=== PATIENT | male | born 1945 | race Asian ===

== ENCOUNTER 2023-10-22 10:39 | Emergency (ER) | payer OTHER, MEDICARE, SELFPAY ==
[2023-10-22 10:40] VITALS: BP 220/100
[2023-10-22 10:58] LABS: % Basophils 0.9 % (0-2); % Eosinophils 2.3 % (0-6); % Immature Granulocytes 0.2 % (0-0.5); % Monocytes 8.6 % (1.7-9.3); Absolute Basophils 0.1 10^3/uL (0-0.2); Absolute Eosinophils 0.2 10^3/uL (0-0.7); Absolute Lymphocytes 2.1 10^3/uL (1.2-3.4); Absolute Monocytes 0.6 10^3/uL (0.1-0.6); Absolute Neutrophils 3.7 10^3/uL (1.4-6.5); Hematocrit 47.9 % (39.0-52.0); Hemoglobin 16.6 g/dL (13.0-18.0); Mean Corp Hgb Conc. 34.7 g/dL (33.0-37.0); Mean Corpuscular Hgb 32.2 pg (27.0-31.0); Mean Platelet Volume 9.1 fL (7.4-10.4); Nucleated Red Blood Cells % 0 % (-); Platelet Count 175 10^3/uL (130-400); Red Blood Cell Count 5.15 10^6/uL (4.70-6.10); Red Cell Dist. Width 11.8 % (11.5-14.5); White Blood Cell Count 6.7 10^3/uL (4.8-10.8)
[2023-10-22 11:21] LABS: ALT (SGPT) 34 U/L (0-50); AST (SGOT) 30 U/L (17-59); Albumin 4.7 g/dl (3.5-5.0); Alkaline Phosphatase 94 U/L (38-126); Blood Urea Nitrogen 17 mg/dl (9-20); Calcium 10.2 mg/dl (8.4-10.2); Carbon Dioxide 29 mmol/L (22-30); Chloride 104 mmol/L (98-107); Glucose 98 mg/dl (70-99); Lipase 102 U/L (23-300); Potassium 4.8 mmol/L (3.5-5.1); Sodium 142 mmol/L (135-145); Total Bilirubin 0.9 mg/dl (0.2-1.3); Total Protein 7.5 g/dl (6.3-8.2); eGFR > 60.00
[2023-10-22 11:57] VITALS: BMI 24.8
[2023-10-22 12:00] VITALS: BP 245/87
--- NOTE | 2023-10-22 12:11 | ED.GENMED ---
History of Present Illness
General
Chief Complaint: Abdominal Pain
Time Seen by Provider: 10/22/23 11:46
History of Present Illness
History of Present Illness:
77-year-old male presents emergency department for evaluation of left lower quadrant/left inguinal pain for the past week. It is worse when he pulls his leg up toward his chest or when he walks. No fevers chills sweats nausea, vomiting, or
diarrhea. No prior abdominal surgeries. Has been taking naproxen 500 mg without relief
Review of Systems
Review of Systems
Allergies reviewed?: Yes
All Other Systems: ROS reviewed and negative except as documented in HPI and ROS
Phy Exam
Physical Exam
Physical Exam:
GEN: Well appearing, NAD, WDWN
HEENT: Oral mucosa moist, no scleral icterus
Cardiac: Regular rate
Lung: No respiratory distress, no tachypnea
Abdomen: Soft, grossly nontender to all 4 quadrants, no obvious inguinal hernia
MSK: No gross deformity or injuries
Skin: Good color, no pallor or jaundice, no rashes
Neuro: AO x3, moves all extremities freely
Psych: Calm, cooperative
Course
Orders/Labs/Results
Orders:
Orders
10/22/23 10:49
CMP [Comprehensive Metabolic Panel] Urgent
Complete Blood Count/With Diff Urgent
Lipase Urgent
10/22/23 12:03
CT Abd/Pel (IV only)-DH only Urgent
Comment:
Reason For Exam: LLQ pain
10/22/23 12:05
Urinalysis Reflex To Culture Urgent
Date Specimen was Collected: 10/22/23
Time Specimen was Collected: 12:03
Abnormal Lab Results
10/22/23
10:49
MCH 32.2 H pg
(27.0-31.0)
10/22/23 10:49
10/22/23 10:49
Vital Signs
Initial and Last Documented VS:
Initial Vital Signs
Temp Pulse Resp BP Pulse Ox
97.7 F 67 16 220/100 97
10/22/23 10:40 10/22/23 10:40 10/22/23 10:40 10/22/23 10:40 10/22/23 10:40
Last Documented Vital Signs
Temp Pulse Resp BP Pulse Ox
97.7 F 62 16 245/87 100
10/22/23 10:40 10/22/23 12:00 10/22/23 12:00 10/22/23 12:00 10/22/23 12:00
MDM/Problems Addressed
MDM/Problems Addressed:
Labs, urine, and CT scan showed no evidence for acute pathology. No palpable inguinal hernia. Could be a lower abdominal muscular etiology
*Critical Care Note
Total Time (30-74mins, 75-104mins- exclusive of procedures): Not Applicable
ED Attending Note
-
Portions of this chart may have been created with voice recognition software.� Occasional wrong word or��sound alike� substitutions may have occurred due to the inherent limitations of voice recognition software.
Discharge Plan
Departure
Patient Disposition: Home (Routine Discharge)
Date of Disposition: 10/22/23
Time of Disposition: 13:19
Patient with high blood pressure during this ER visit?: Yes
Discharge Problem:
Abdominal pain, acute, left lower quadrant
Instructions: Abdominal Muscle Strain (DC)
Prescriptions:
New
meloxicam 15 mg tablet
15 mg PO DAILY Qty: 15 0RF
Referrals:
Salomon Machado MD [Active] -
Oswaldo Steen MD [Family Provider] -
Interventions
Interventions:
*Risk Screen - Suicide Last Done: 10/22/23 11:56
*General Assessment Last Done: 10/22/23 10:40
*Neglect/Abuse Screening Last Done: 10/22/23 11:56
ED- Fall Risk Assessment Last Done: 10/22/23 11:56
*ED COVID-19 Vaccine History Last Done: 10/22/23 10:40
*Nursing Disposition Last Done: 10/22/23 13:30
HD-Dwwsiw-Xpzapoelrn Assessment Last Done: 10/22/23 11:58
Discharge Date and Time
Discharge Date/Time: 10/22/23 13:30
Print Language: SLOVAK
[2023-10-22 12:31] LABS: Urine Albumin Negative (Neg - Trace); Urine Bilirubin Negative (Negative); Urine Character Clear (Clear); Urine Color Straw; Urine Glucose Negative (Negative); Urine Ketone Negative (Negative); Urine Leukocyte Negative (Negative); Urine Nitrite Negative (Negative); Urine Occult Blood Negative (Negative); Urine Specific Gravity 1.015 (<1.030); Urine Urobilinogen Negative (Neg - 1+); Urine pH 6.5 (5.0-9.0)
== END 2023-10-22 13:30 | disposition home or self-care (01) ==
LOC: EMR 10:39
PROVIDERS: Physician Assistant; EMERGENCY PHYSICIAN Emergency Medicine; FAMILY PHYSICIAN Internal Medicine
DX: R10.32 Left lower quadrant pain (principal); R03.0 Elevated blood-pressure reading, without diagnosis of hypertension; Z91.013 Allergy to seafood
CPT/HCPCS: 99284; 74177; 80053; 81003; 83690; 85025; Q9967

== ENCOUNTER → 2024-01-16 06:22 | Day surgery (SDC) | payer OTHER, SELFPAY | LOC: GI 06:22 | PROVIDERS: ATTENDING PHYSICIAN Internal Medicine | DX: Z12.11 Encounter for screening for malignant neoplasm of colon (principal); K57.30 Diverticulosis of large intestine without perforation or abscess without bleeding; K64.8 Other hemorrhoids; K64.4 Residual hemorrhoidal skin tags; Z86.010 Personal history of colon polyps | CPT/HCPCS: G0105 ==

== ENCOUNTER → 2024-02-21 09:06 | Outpatient (REF) | payer OTHER, SELFPAY | LOC: RAD 09:06 | PROVIDERS: ATTENDING PHYSICIAN Internal Medicine | DX: I99.8 Other disorder of circulatory system (principal); I10 Essential (primary) hypertension | CPT/HCPCS: 71260; Q9967 ==

== ENCOUNTER 2024-06-19 15:50 | Emergency (ER) | payer OTHER, SELFPAY ==
[2024-06-19 16:05] VITALS: BP 238/123
--- NOTE | 2024-06-19 16:05 | ED.GENMED ---
ED Provider Triage
<Adis Valdovinos PA-C - Last Filed: 06/19/24 16:07>
-
Patient seen by provider in Triage?: Seen in Triage
Attestation: A medical screening examination has been initiated by a qualified medical provider. Based on the assessment performed at this time, it has been determined that an emergent medical condition may exist and the patient has been informed
that further medical evaluation and possible additional diagnostic testing may be needed.
HPI: Patient sent to the emergency department by urgent care for evaluation of chest discomfort cough and elevated blood pressure. Blood pressure at urgent care was reportedly greater than 240 systolically. Here patient's blood pressure is
238/123. Patient is otherwise asymptomatic. He notes that he has had elevated blood pressure before and believes he is on medication for this but is unable to recall what medicine he is on. Labs and EKG ordered.
GENERAL: Alert , in no apparent distress
EYE: No visual abnormalities.
NECK: Trachea midline
ENT: No visible abnormalities.
LUNGS: No acute respiratory distress
NEUROLOGICAL: Alert and oriented
SKIN: Skin intact. No visible changes.
MUSCULOSKELETAL: Moving extremities normally
PSYCH: Normal and appropriate interaction.
This is a medical evaluation conducted in person to initiate diagnostic evaluation and provide initial therapeutics. Please see further documentation by the treating clinician.
History of Present Illness
<Adis Valdovinos PA-C - Last Filed: 06/19/24 16:07>
General
Chief Complaint: Chest Pain
Time Seen by Provider: 06/19/24 19:09
<AURELIA York - Last Filed: 06/19/24 22:18>
General
Source: patient
Exam Limitations: none
Nursing documentation reviewed up to this point in time: agreed with
History of Present Illness
History of Present Illness:
Patient is a 78-year-old male with past medical history of hypertension, hypercholesteremia presents to the ER for evaluation. Patient has had a cough for the past several days and on Tuesday 3 days ago had chest discomfort only when coughing. He
was taking Tylenol which helped but then had discomfort again today went to urgent urgent care. He reports his pain is only with coughing. His bp was elevated at urgent care and they sent him here the ER. He does have a history of high blood
pressure. He is on bisoprolol/HCTZ . He did take that medicine this morning. He denies any headache blurry vision shortness of breath.
He has not taken any akut-ewe-jhbnmfm cold medicines
Review of Systems
<AURELIA York - Last Filed: 06/19/24 22:18>
Review of Systems
Allergies reviewed?: Yes
All Other Systems: ROS reviewed and negative except as documented in HPI and ROS
Constitutional: Reports no symptoms; Denies fever, fatigue or chills
Respiratory: Reports cough; Denies trouble breathing
Cardiac: Reports chest pain (cp with coughing only )
ABD/GI: Reports no symptoms
: Reports no symptoms
Musculoskeletal: Reports no symptoms
Skin: Reports no symptoms
Neurological: Reports no symptoms; Denies headache
Psychiatric: Reports no symptoms
Phy Exam
<AURELIA York - Last Filed: 06/19/24 22:18>
General Physical Exam
General Presentation: no apparent distress
General age: appears stated age
General Skin: warm and dry
General Habitus: normal
General Mental: alert
General Hydration: appears well hydrated
Cardiovascular Exam
Cardiovascular Exam: regular rate/rhythm, no murmur and normal peripheral pulses
Pulmonary Exam
Pulmonary Exam: lungs clear, no respiratory distress and chest non tender
Neurological Exam
Neurological Exam: alert and oriented x3
Musculoskeletal Exam
Musculoskeletal Exam: full ROM
Skin Exam
Skin Exam: normal color and warm/dry
Psychiatric Exam
Psychiatric Exam: normal mood/affect
Scores
<AURELIA York - Last Filed: 06/19/24 22:18>
Heart Score for Chest Pain Patients
STEMI patient?: Not applicable
Course
<Adis Valdovinos PA-C - Last Filed: 06/19/24 16:07>
Orders/Labs/Results
Orders:
Orders
06/19/24 15:51
ECG [Electrocardiogram (*1)] Urgent
Reason for Study: Chest Pain
EKG- Treatment ONCE
06/19/24 16:17
Complete Blood Count/With Diff Urgent
Comprehensive Metabolic Panel Urgent
06/19/24 19:40
Albuterol Nebs [Ventolin Nebules] 2.5 mg INH R NOW STA
Ibuprofen [Motrin] 600 mg PO NOW STA
Chest [CR Chest - 2 Views ] Urgent
Comment:
Reason For Exam: cough, left sided cp with coughing
06/19/24 21:17
Add On- LAB Urgent
Tests Added?: troponin
06/19/24 21:24
Troponin I Urgent
Abnormal Lab Results
06/19/24
16:17
MCH 31.9 H pg
(27.0-31.0)
Absolute Monos (auto) 0.7 H 10^3/uL
(0.1-0.6)
Monocytes % 12.2 H %
(1.7-9.3)
Albumin 5.1 H g/dl
(3.5-5.0)
06/19/24 16:17
06/19/24 16:17
Vital Signs
Initial and Last Documented VS:
Initial Vital Signs
Temp Pulse Resp BP Pulse Ox
98.1 F 60 18 238/123 100
06/19/24 16:05 06/19/24 16:05 06/19/24 16:05 06/19/24 16:05 06/19/24 16:05
Last Documented Vital Signs
Temp Pulse Resp BP Pulse Ox
98.1 F 68 16 191/73 96
06/19/24 16:05 06/19/24 19:49 06/19/24 19:49 06/19/24 21:00 06/19/24 21:30
<AURELIA York - Last Filed: 06/19/24 22:18>
Orders/Labs/Results
Orders:
Orders
06/19/24 15:51
ECG [Electrocardiogram (*1)] Urgent
Reason for Study: Chest Pain
EKG- Treatment ONCE
06/19/24 16:17
Complete Blood Count/With Diff Urgent
Comprehensive Metabolic Panel Urgent
06/19/24 19:40
Albuterol Nebs [Ventolin Nebules] 2.5 mg INH R NOW STA
Ibuprofen [Motrin] 600 mg PO NOW STA
Chest [CR Chest - 2 Views ] Urgent
Comment:
Reason For Exam: cough, left sided cp with coughing
06/19/24 21:17
Add On- LAB Urgent
Tests Added?: troponin
06/19/24 21:24
Troponin I Urgent
Abnormal Lab Results
06/19/24
16:17
MCH 31.9 H pg
(27.0-31.0)
Absolute Monos (auto) 0.7 H 10^3/uL
(0.1-0.6)
Monocytes % 12.2 H %
(1.7-9.3)
Albumin 5.1 H g/dl
(3.5-5.0)
06/19/24 16:17
06/19/24 16:17
Vital Signs
Initial and Last Documented VS:
Initial Vital Signs
Temp Pulse Resp BP Pulse Ox
98.1 F 60 18 238/123 100
06/19/24 16:05 06/19/24 16:05 06/19/24 16:05 06/19/24 16:05 06/19/24 16:05
Last Documented Vital Signs
Temp Pulse Resp BP Pulse Ox
98.1 F 68 16 191/73 96
06/19/24 16:05 06/19/24 19:49 06/19/24 19:49 06/19/24 21:00 06/19/24 21:30
Oyster Harvester consulted with Physician
Oyster Harvester consulted with physician?: Yes
Name of Physician Consulted: Dany
<AURELIA York - Last Filed: 06/19/24 22:18>
MDM/Problems Addressed
Differential Diagnosis Includes:
Not limited to URI, bronchitis less likely pneumonia hypertension
MDM/Problems Addressed:
As documented patient is a 78-year-old male sent to urgent care for evaluation. Patient has had cough and chest discomfort only with coughing. His blood pressure was elevated urgent care he was sent to the ER. He denies taking any
giuk-mga-bjntint cough or cold medicine. He is asymptomatic and has no complaints of headache blurry vision or shortness of breath.
Chest x-ray is negative his white count is normal his lungs are clear.
Patient was given neb here for cough ibuprofen. Troponin negative. Blood pressure has been elevated here however patient is no acute distress he did take his blood pressure medication today. No concerning symptoms related to blood pressure. Case
reviewed ED physician will DC with outpatient follow family doctor discussed with patient to have his blood pressure rechecked as it was high in the ER and to avoid hrul-feb-qufddfn cough cold medicines.
<AURELIA York - Last Filed: 06/19/24 22:18>
*Radiology
Radiology exam reviewed: radiology read reviewed
*Pulse Oximetry
Patient hypoxic: no
*EKG
Heart Rate: 54
Rate: bradycardiac
Rhythm: sinus
Ischemia: no ischemia
*Critical Care Note
Total Time (30-74mins, 75-104mins- exclusive of procedures): Not Applicable
ED Attending Note
<Adis Valdovinos PA-C - Last Filed: 06/19/24 16:07>
-
Portions of this chart may have been created with voice recognition software.� Occasional wrong word or��sound alike� substitutions may have occurred due to the inherent limitations of voice recognition software.
Discharge Plan
Departure
Patient Disposition: Home (Routine Discharge)
Date of Disposition: 06/19/24
Time of Disposition: 22:08
Patient with high blood pressure during this ER visit?: Yes
Covid-19: Not Applicable
Discharge Problem:
Chest pain
Instructions: Chest Pain That Is Not Caused by the Heart (DC), Pleuritic Chest Pain ED
Prescriptions:
No Action
bisoprolol-hydrochlorothiazide 10-6.25 mg Tablet
1 tab PO DAILY
lovastatin 40 mg Tablet
40 mg PO QPM
acetaminophen [Tylenol Ex Str Arthritis Pain] 500 mg Tablet
500 mg PO Q6H PRN (Reason: pain)
ibuprofen 400 mg Tablet
400 mg PO Q6H PRN (Reason: pain)
naproxen 500 mg Tablet
500 mg PO BID PRN (Reason: Reduction Of Transepidermal Water Loss)
aspirin 81 mg Capsule
81 mg PO DAILY
Referrals:
NONE,* [Active] -
Activity Restrictions/Additional Instructions:
As discussed your chest pain is muscular from coughing.
There is no pneumonia on your x-ray .your white count is normal and you do not have a fever.
this is likely a viral syndrome/bronchitis
Continue to get plenty of rest and take Tylenol as needed for discomfort.
Your blood pressure was elevated here in the ER please make an appointment with your family doctor in the next several days for reevaluation of symptoms and reevaluation of your blood pressure
Return if any worsening of symptoms.
Interventions
Interventions:
*Risk Screen - Suicide Last Done: 06/19/24 16:05
*General Assessment Last Done: 06/19/24 19:24
*Neglect/Abuse Screening Last Done: 06/19/24 16:05
ED- Fall Risk Assessment Last Done: 06/19/24 19:24
*ED COVID-19 Vaccine History Last Done: 06/19/24 16:05
ED- Cardiac Assessment Last Done: 06/19/24 19:24
Discharge Date and Time
Print Language: GERMAN
[2024-06-19 16:30] LABS: % Basophils 0.6 % (0-2); % Eosinophils 4.3 % (0-6); % Immature Granulocytes 0.2 % (0-0.5); % Lymphocytes 39.7 % (20.5-51.1); % Monocytes 12.2 % (1.7-9.3); Absolute Eosinophils 0.2 10^3/uL (0-0.7); Absolute Lymphocytes 2.2 10^3/uL (1.2-3.4); Absolute Monocytes 0.7 10^3/uL (0.1-0.6); Absolute Neutrophils 2.3 10^3/uL (1.4-6.5); Hematocrit 49.7 % (39.0-52.0); Hemoglobin 16.9 g/dL (13.0-18.0); Mean Corpuscular Hgb 31.9 pg (27.0-31.0); Mean Corpuscular Volume 93.8 fL (80.0-94.0); Mean Platelet Volume 9.6 fL (7.4-10.4); Nucleated Red Blood Cells % 0 % (-); Platelet Count 153 10^3/uL (130-400); Red Cell Dist. Width 11.8 % (11.5-14.5); White Blood Cell Count 5.4 10^3/uL (4.8-10.8)
[2024-06-19 16:43] LABS: ALT (SGPT) 44 U/L (0-50); AST (SGOT) 38 U/L (17-59); Albumin 5.1 g/dl (3.5-5.0); Alkaline Phosphatase 92 U/L (38-126); Blood Urea Nitrogen 17 mg/dl (9-20); Calcium 9.1 mg/dl (8.4-10.2); Carbon Dioxide 30 mmol/L (22-30); Chloride 99 mmol/L (98-107); Glucose 95 mg/dl (70-99); Potassium 4.7 mmol/L (3.5-5.1); Sodium 141 mmol/L (135-145); Total Bilirubin 0.9 mg/dl (0.2-1.3); Total Protein 7.8 g/dl (6.3-8.2); eGFR > 60.00
[2024-06-19 18:38] VITALS: BP 163/112
[2024-06-19 19:24] VITALS: BMI 25.3
[2024-06-19 19:25] VITALS: BP 236/75
[2024-06-19] MEDS: MOTRIN 600 MG PO (19:48)
[2024-06-19] MEDS: VENTOLIN NEBULES 2.5 MG INH (19:48)
[2024-06-19 20:09] VITALS: BP 221/70
[2024-06-19 21:00] VITALS: BP 191/73
[2024-06-19 22:05] LABS: Troponin I < 0.012 ng/ml
== END 2024-06-19 22:16 | disposition home or self-care (01) ==
LOC: EMR 15:50
PROVIDERS: Nurse Practitioner; Physician Assistant Medical; EMERGENCY PHYSICIAN Student in an Organized Health Care Education/Training Program; FAMILY PHYSICIAN Internal Medicine
DX: R07.89 Other chest pain (principal); I10 Essential (primary) hypertension; E78.00 Pure hypercholesterolemia, unspecified
CPT/HCPCS: 99285; 94640; 71046; 80053; 84484; 85025; 93005

== ENCOUNTER → 2024-08-01 07:01 | Outpatient (REF) | payer OTHER, SELFPAY | LOC: RAD 07:01 | PROVIDERS: ATTENDING PHYSICIAN Internal Medicine | DX: R91.1 Solitary pulmonary nodule (principal) | CPT/HCPCS: 71250 ==